=== PATIENT | female | born 1980 | race Caucasian/White ===

== ENCOUNTER → 2018-06-11 13:47 | Outpatient (CLI) | payer OTHER, SELFPAY ==
[2018-06-11 09:29] VITALS: BMI 28.7
--- OUTSIDE RECORDS SUMMARY | 2018-07-28 18:43 | XMS RPT_ITS ---
:1980 Author Organization OHIP Care Team Providers Name Role Phone Karina Carrillo Attending Unavailable Oleghe, Efewongbe Referring Unavailable Yale, Karina Attending Unavailable Yale, Karina Referring Unavailable Oleghe, Efewongbe Primary Care Unavailable Oleghe, Efewongbe Attending Unavailable Oleghe, Efewongbe Referring Unavailable Primay Care Physicia, No Primary Care Unavailable Yale, Karina Attending Unavailable Lorena, Karina Attending Unavailable Oleghe, Efewongbe Referring Unavailable Lorena, Karina Attending Unavailable Lorena, Karina Referring Unavailable Oleghe, Efewongbe Primary Care Unavailable Jules Gale OUTSOLE PARAFFINER-C Attending Unavailable Oleghe, Efewongbe Referring Unavailable Primay Care Physicia, No Primary Care Unavailable Jules Gale OUTSOLE PARAFFINER-C Attending Unavailable Oleghe, Efewongbe Referring Unavailable PROBLEMS PROBLEMS DATE TYPE CONDITION / CODE ATTENDING STATUS SOURCE 07/09/2018 Unknown N89.8 - Other YaleKarina otero Active [place] specified [facility] disorders of vagina / Repository N89.8(ICD-10) 07/09/2018 Unknown Z01.411 - Encounter Karina Carrillo Active [place] for gynecological Community examination (general) Hospital (routine) with Repository abnormal findings / Z01.411(ICD-10) 06/11/2018 Unknown N76.0 - Acute YaleKarina Active [place] vaginitis / Community N76.0(ICD-10) Hospital Repository 06/11/2018 Unknown B37.3 - Candidiasis Lorena, Karina Active [place] of vulva and vagina / Community B37.3(ICD-10) Hospital Repository 04/05/2018 Unknown Z23 - Encounter for Jules Gale Active [place] immunization / OUTSOLE PARAFFINER-C Community Z23(ICD-10) Hospital Repository PROCEDURES PROCEDURES No Procedure Records FoundRESULTS RESULTS Observed: 07/09/2018 Status: F Source: [place] CULTURE, GENITAL 2:06 PM [facility] COMPREHENSIVE REPOSITORY Reason for Exam: vaginal itching Comments: sensitivities for any growth Gram Stain Score = 4 Interpretation: 0-3 Normal, 4-6 Intermediate, 7-10 Positive BV Gram Stain 1+ Epithelial cells 1+ Gram positive rods 2+ Gram positive cocci in chains Rare Gram variable azra No Gram negative diplococci Gent Cult Comp No Gardnerella, Neisseria or beta-hemolytic Streptococcus isolated. ORGANISM 1: Streptococcus agalactiae (B) Amount Growth 3+ ORGANISM 2: Presumptive C albicans Amount Growth Rare Streptococcus agalactiae (B): REACTION Ampicillin $ <=0.25 S Clindamycin $$ <=0.25 S Inducable Clindamycin Resistan - Linezolid $$$$ <=2 S Vancomycin $ 0.5 S (NF) indicates non-formulary drug at [facility]. Approval by Infectious Disease Specialist required before non-formulary drugs may be ordered and/or dispensed. * CLSI guidelines does not recommend testing of cephalosporins. This interpretation is deduced from Beta-lactam/penicillin results. Performed By: #### M100.1600 #### [facility] [address] [place], [address] [employer] OFFICE VISIT Observed: 07/09/2018 Status: F Source: [place] REPORT 9:55 AM [facility] REPOSITORY [facility] [address] [place] [address] OFFICE VISIT Date of Service: 07/09/18 MR#: [id number] Acct: [id number] Name: BENY REICH Rep #: [id number] : 1980 Provider: ALEISHA Carrillo Age/Sex: 38/F Location: [facility] Status: Signed Intake Vital Signs07/09/18 Body Mass Index (BMI) 28.7 07/09/18 Height 5 ft 6 in 07/09/18 Weight: 192 lb 07/09/18 Body Mass Index (BMI) 30.9 07/09/18 Blood Pressure 108/74 Intake Visit Reasons: ANNUAL Order Detailer Required: No Is patient in pain?: No Allergies No Known Allergies Allergy (Verified 07/09/18 09:26) Medications multivitamin,zg-ekre-oykozfny tablet 1 tab PO DAILY 06/11/18 [History Confirmed 07/09/18] fluconazole 150 mg tablet 150 mg PO .COMPLEX #5 tab 07/09/18 [Rx Confirmed 07/09/18] triamcinolone acetonide 0.025 % topical cream 1 applic TOPICAL BID PRN g 07/09/18 [History] Is last menstrual period known: Yes Last Menstral Period: 06/12/18 Post menopausal: No Patient : No : No PFSH Surgical History History of 3 sections (Acute) History of tubal ligation (Acute) Family History Grandfather Colon cancer Grandmother CVA (cerebral vascular accident) Hypertension Sister Cancer basal cell skin Depression Social History Smoking Status: Never smoker alcohol intake: current alcohol intake frequency: a few times a month substance use type: does not use what type of physical activity do you participate in: walking, weight training frequency: 3-4 times per week seatbelt use: always do you feel safe at home: Yes additional social history: - [place]- Insurance 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 DatName GA/WeeksOutcome Route [facility] Nadir Peguero [facility] LocaProviderFOB e ht en th ia tn Unknown 2009 Log an Unknown Leigha Unknown 2015 [facility] HPI ANNUAL: Details: BENY REICH is a 38 year old who presents for annual exam. She is having vaginal itching X 1-2 weeks. Was treated for yeast in Jun 2018. States has been dealing with whole body itching since December. Has seen PCP twice and derm 3 times and biopsy confirms skin condition similar to psoriasis. Last PAP: 2016 History of abnormal PAP: no Contraception BTO Was on OCP for menstrual control but stopped 3 months ago per derm to see if itching improved. Female Reproductive History Last Menstral Period: 06/12/18 ROS Const Constitutional: Denies fatigue, weight gain or weight loss Cardio Card: Denies chest pain Resp Resp: Denies cough or shortness of breath with activity GI GI: Denies abdominal pain, constipation, change in stools, vomiting or bloating : Reports as per HPI and vaginal itching; denies urinary frequency, pelvic pain, urinary urgency, vaginal discharge, urinary incontinence or difficulty urinating Skin Skin/Breast: Reports as per HPI Exam Const General: cooperative, healthy appearing, no acute distress, well developed Orientation: alert, oriented to person, oriented to place HENSC Head: normal to inspection Neck Neck: normal visual inspection Thyroid: thyroid normal Lymphatic: no lymphadenopathy noted Chest Breast inspection: normal inspection of the breasts, normal inspection of the axillae Breast palpation: normal palpation of the breasts, normal palpation of the axillae, no axillary lymphadenopathy Resp Effort AND Inspection: normal respiratory effort GI Palpation: soft, nontender, no masses Rectal Exam: deferred External Female Exam: normal external appearance, normal appearance of the urethra Urethra: normal appearance of the urethra, normal palpation Speculum Exam - Vagina: abnormal vaginal discharge white, vaginal erythema (slight mottled appearance) Speculum Exam - Cervix: normal appearance of the cervix Bimanual Exam- Vagina AND Uterus: normal bimanual exam, uterine size normal, uterine shape normal, uterus non-tender Bimanual Exam- Adnexa, other: normal adnexae, no adnexal masses, adnexae non-tender, pelvic support normal Pelvic Support: normal Neuro General: alert, oriented x3 Psych Affect: normal affect Assessment AND Plan Problems 1. Encounter for gynecological examination with abnormal finding Z01.411 2. Vagina itching N89.8 Plan Completed breast and pelvic exam Reviewed diet and exercise Pap 2016 Fluconazole every other day X 5 doses. Comp vag culture with sensitivities-call results. May consider clobetesol if neg culture Contraception BTO RTO 1 year, prn with problems Karina Carrillo BUSINESS MANAGEMENT SPECIALIST Orders Orders: Medications New: Coding Level of Care Code Off vis,est,prev 18-39yrs Diagnoses Encounter for gynecological examination with abnormal finding Z01.411 Gynecological examination findings: abnormal findings PRESENT Vagina itching N89.8 07/09/18 0955 <Electronically signed by Karina RIOSC> Date Karina Carrillo OUTSOLE PARAFFINER-C Cosigner Signature: Date (if applicable) CC: Observed: 06/11/2018 Status: F Source: [place] CULTURE, GENITAL 1:54 PM [facility] COMPREHENSIVE REPOSITORY Reason for Exam: vaginitis Gram Stain Score = 1 Interpretation: 0-3 Normal, 4-6 Intermediate, 7-10 Positive BV Gram Stain 3+ Gram positive rods Rare Epithelial cells Rare Gram negative rods Gent Cult Comp No Gardnerella, or Neisseria isolated. VINITA ALBICANS ANTIFUNGAL PANEL FLUCONAZOLE REVA 0.5 ug/mL SUSCEPTIBLE AMPHOTERICIN B REVA 0.5 ug/mL There are no CLSI standards for interpretation of this Drug/Organism combination. TESTING PERFORMED AT [facility]. ORIGINAL REPORT ON FILE IN LAB CONTAINS ADDITIONAL TEST SITE INFORMATION. ORGANISM 1: Streptococcus agalactiae (B) Amount Growth 1+ ORGANISM 2: [place] albicans Amount Growth Rare Streptococcus agalactiae (B): REACTION Ampicillin $ <=0.25 S Clindamycin $$ <=0.25 S Inducable Clindamycin Resistan - Linezolid $$$$ <=2 S Vancomycin $ 0.5 S (NF) indicates non-formulary drug at [facility]. Approval by Infectious Disease Specialist required before non-formulary drugs may be ordered and/or dispensed. * CLSI guidelines does not recommend testing of cephalosporins. This interpretation is deduced from Beta-lactam/penicillin results. Performed By: #### M100.1600 #### [facility] [address] [place], [place], [id number] MISCELLANEOUS LAB Collected: 06/11/2018 Status: F Source: [place] PROCEDURE 1:54 PM [facility] REPOSITORY Order Comment: ADD ON YEAST ID AND SENSITIVITY Test(s) Ordered: [id number] TYPE CODE TESTS RESULT OUT OF RANGE REFERENCE UNITS LAB L801.1541 Normal MISC LAB TEST Result Comment: SEE CULTURE [id number] FOR RESULTS Performed By: #### L801.1541 #### [facility] [address] [place], [place], [address] MISCELLANEOUS LAB Collected: 06/11/2018 Status: F Source: [place] PROCEDURE 1:00 PM [facility] REPOSITORY Order Comment: Comments: lc#[id number] lc#[id number] lc#[id number] Test(s) Ordered: lc#[id number] lc#[id number] lc#[id number] TYPE CODE TESTS RESULT OUT OF RANGE REFERENCE UNITS LAB L801.1541 Normal MISC LAB TEST Result Comment: Please see microbiology report for results. Performed By: #### L801.1541 #### [facility] [address] [place], [place], [address] [employer] OFFICE VISIT Observed: 06/11/2018 Status: F Source: [place] REPORT 9:57 AM [facility] REPOSITORY [facility] [address] [place] [address] OFFICE VISIT Date of Service: 06/11/18 MR#: [id number] Acct: [id number] Name: BENY REICH Rep #: [id number] : 1980 Provider: ALEISHA Carrillo Age/Sex: 37/F Location: [facility] Status: Signed Intake Vital Signs06/11/18 Body Mass Index (BMI) 28.7 Intake Visit Reasons: Vaginal itching x6 months Chief Complaint: vaginal itching Order Detailer Required: No Is patient in pain?: No Allergies No Known Allergies Allergy (Verified 06/11/18 09:26) Medications triamcinolone acetonide 0.025 % topical cream 1 applic TOPICAL BID #80 g 01/29/18 [Rx Confirmed 06/11/18] fluconazole 150 mg tablet 150 mg PO .COMPLEX #2 tab 06/11/18 [Rx Confirmed 06/11/18] multivitamin,bv-wzrc-feecgqnz tablet 1 tab PO DAILY 06/11/18 [History Confirmed 06/11/18] Is last menstrual period known: Yes Last Menstral Period: 05/14/18 Post menopausal: No Patient : No : No PFSH Surgical History History of 3 sections (Acute) History of tubal ligation (Acute) Family History Grandfather Colon cancer Grandmother CVA (cerebral vascular accident) Hypertension Sister Cancer basal cell skin Depression Social History Smoking Status: Never smoker alcohol intake: current alcohol intake frequency: a few times a month substance use type: does not use what type of physical activity do you participate in: walking, weight training frequency: 3-4 times per week HPI Vaginal itching x6 months: Details: BENY REICH is a 37 year old who presents for vaginal itching off and on X 6 months. OTC 3 day monistat helpful a few weeks ago but returned. and denies STD concerns. Has had BTO, was on OCP until last month to regulate menses. No menses yet. Female Reproductive History Last Menstral Period: 05/14/18 Pregancy History 3 Elective abortions Hx Para 3 Spontaneous abortions Past Pregnancies Del. DatName GA/WeeksOutcome Route [facility] Nadir Peguero LgAnestheILel LocaProviderFOB e ht en ia tn Unknown 2009 Log an Unknown Leigha Unknown 2015 Aut umn ROS Const Constitutional: Reports system reviewed and no additional complaints, except as docu GI GI: Denies abdominal pain or change in bowel habits : Reports as per HPI Exam Const General: cooperative, no acute distress Nutritional Appearance: well nourished Orientation: oriented x3 External Female Exam: erythema, normal appearance of the urethra Urethra: normal appearance of the urethra Speculum Exam - Vagina: abnormal vaginal discharge white, vaginal erythema Speculum Exam - Cervix: normal appearance of the cervix Bimanual Exam- Vagina AND Uterus: normal bimanual exam Bimanual Exam- Adnexa, other: normal adnexae Assessment AND Plan Problems 1. Monilial vaginitis B37.3 2. Vaginal discharge N89.8 Plan Rx fluconazole Review [employer] skin care NURA BV and comp vaginal culture-call only if not yeast Medications New: Coding Level of Care Code Off vis,est,level 3 Diagnoses Monilial vaginitis B37.3 Vaginal discharge N89.8 06/11/18 0957 <Electronically signed by Karina GRAFF> Date Karina GRAFF Cosigner Signature: Date (if applicable) CC: INTERNAL MEDICINE Observed: 04/05/2018 Status: F Source: [place] OFFICE VISIT 1:58 PM [facility] Internal Medicine [facility] [place] [address] [place] [address] OFFICE VISIT Date of Service: 04/05/18 MR#: [id number] Acct: [id number] Name: BENY REICH Rep #: [id number] : 1980 Provider: Jules Gale NP Age/Sex: 37/F Location: [facility] Status: Signed Intake Vital Signs04/05/18 Height 5 ft 6 in 04/05/18 Weight: 184 lb 04/05/18 Body Mass Index (BMI) 29.7 04/05/18 Blood Pressure 121/75 H Intake Visit Reasons: ongoing rash Chief Complaint: rash, itching Is patient in pain?: No Allergies No Known Allergies Allergy (Verified 04/05/18 10:27) Medications Levonorgestrel-Ethin Estradiol [Altavera-28 Tablet] 07/14/17 [History Confirmed 04/05/18] triamcinolone acetonide 0.025 % topical cream 1 applic TOPICAL BID #80 g 01/29/18 [Rx Confirmed 04/05/18] methylprednisolone 4 mg tablets in a dose pack See Rx Instructions PO PER PKG DIR #21 tab 04/05/18 [Rx Confirmed 04/05/18] PFSH Surgical History History of 3 sections (Acute) History of tubal ligation (Acute) Family History Grandfather Colon cancer Grandmother CVA (cerebral vascular accident) Hypertension Sister Cancer basal cell skin Depression Social History Smoking Status: Never smoker alcohol intake: current alcohol intake frequency: a few times a month substance use type: does not use what type of physical activity do you participate in: walking, weight training frequency: 3-4 times per week HPI HPI Chief Complaint: rash, itching Details: BENY REICH, is a 37 F who presents to the office today for complaints of ongoing rash. Patient has a past medical history of insomnia. Patient was seen in December with complaints of rash and treated for poison noman. The patient states the rash never fully went away, it did improve at the time. Over the past few months she complains of itchy red bumps mostly occurring on her arms and legs. She states that triamcinolone and yudy cream are minimally effective. She states that the itching is worse at night and in the morning. She denies any recent changes of soaps or chemicals. She also denies any issues from family members. She denies any other alleviating or agitating factors. The patient otherwise denies any fever, chills, nausea, vomiting, shortness of breath, chest pain or pressure, palpitations, orthopnea, lower extremity edema, syncope or presyncopal episodes. ROS Const Constitutional: No chills, fatigue, fever(s), frequent falls, malaise, weakness, sleep problems or change in appetite Eyes Eyes: No blurry vision, change in vision, double vision, discharge or visual disturbances ENT ENT: No abnormal hearing, ear pain, ear pressure, tinnitus or dizziness/vertigo Resp Respiratory: No cough, shortness of breath or wheezing Cardio Cardiology: No chest pain at rest, chest pain with exertion, shortness of breath, dyspnea on exertion, generalized swelling, irregular heart rhythm, lightheadedness, orthopnea, fast heart rate or palpitations Gastro GI: No abdominal pain, change in bowel habits, constipation, diarrhea, nausea/dyspepsia or vomiting Genitourinary-Female: No difficulty urinating, burning urination, painful urination, urinary incontinence, urinary frequency, urinary urgency, urinary hesitancy, urinary retention, Frequent nighttime urination/ nocturia, sexual problems, genital lesions, abnormal vaginal bleeding, pelvic pain, vaginal dryness, vaginal odor or Vaginal Itching Musc Musculoskeletal: No joint pain, back pain, joint swelling, limited range of motion, muscle weakness, numbness or tingling Skin Skin: Positive for itching and rash; no change in skin color or wounds Breast Breast: No breast lump or breast pain Neuro Neurology: No frequent falls, weakness, abnormal hearing, numbness, tingling, unsteady gait/balance, dizziness, loss of vision, memory loss or visual disturbances Psych Psychiatric: No memory loss, No anxiety, No change in appetite, No depression, No Thoughts of harming yourself/Others Endo Endocrine: No fatigue, heat intolerance, increased thirst/drinking, increased hunger or increased urination Aller/Imm Allergy/Immunologic: Positive for itchy eyes; no wheezing or seasonal allergy symptoms Uvaldo/Lymp Hematologic/Lymphatic: No easy bleeding, easy bruising or enlarged lymph nodes Exam Const General: cooperative, comfortable, no acute distress Nutritional Appearance: average body habitus, well nourished Orientation: alert, oriented x3 Limitations: mental status not altered Eyes General: appearance normal, both eyes and all related structures Resp Effort AND Inspection: normal respiratory effort, able to speak in complete sentences, normal respiratory pattern, symmetric chest movement, no audible wheezes, no cough Auscultation: Bilateral: Clear to Auscultation Cardio Palpation: normal PMI Rate: regular rate Heart Sounds: S1 normal, S2 normal, normal S1 and S2, no click, no gallops, no murmurs, no rubs Musc Musculoskeletal: No muscle weakness Skin General: elasticity normal, turgor normal Lesions: no lesions Rashes: rashes noted right upper arm: arrangement clustered clustered, surface, morphology, distribution, borders and other (Vesicular) bilateral posterior upper leg: arrangement clustered clustered and other (Vesicular) Neuro General: alert, awake, oriented x3, CN's II-XI intact bilaterally Speech: speech normal Gait: normal gait Motor: muscle tone normal throughout Extrem General: normal to inspection, normal gait, no edema, no pedal edema Psych Appearance: grossly normal Mental Status: mental status grossly normal Affect: normal affect Attitude: cooperative Thought Process: normal Office Meds Flucelvax Quad [id number] (PF) Performing Provider: DAJUAN Gilliam Administered by: Rose Rubio on 04/05/18 10:39 Dose Route Admin Location Lot Number Expiration Date [place] Gravel [employer]ener 0.5 mL IM Lt deltoid [id number] 12/29/18 82593-929-07 SEQIRUS Assessment AND Plan Problems 1. Contact dermatitis L25.9 2. Generalized pruritus L29.9 Plan The patient's symptoms are consistent with some sort of contact dermatitis, unsure of what the irritant may be at this time. Will start patient Medrol Dosepak. Instructed patient to eliminate any aggravating chemicals or irritants. Instructed patient to use lkd-ygoguqey-ttqvczixee products. Educated patient to take Benadryl at bedtime and Claritin during the day. If rashes continue or worsen patient to follow- up with golf caddy she is already established with and has an appointment with next week. Dmitry disclaimer Orders Orders: Medications New: Discontinued: Flucelvax Quad [id number] (PF) (flu vac qs 2017(4 yr up)CD(P0.5 mL IM ONCE 1 mL 0RF NS Z23 F)) Discontinued Reason: Office Medication has been Doc umented as given Plan Detail Additional Comments influenza vaccine given during today's office visit, patient verbalized understanding of the risks and benefits of the procedure. Patient monitored for 15 minutes after administration and tolerated the procedure well. No signs of reaction at this time. Patient education given.Patient educated on hzbk-cjf-vawwrec analgesics that may be appropriate for site discomfort. Follow Up As previously Coding Level of Care Code Off vis,est,level 3 Diagnoses Contact dermatitis L25.9 Generalized pruritus L29.9 04/05/18 1358 <Electronically signed by Jules GRAFF> Date Jules GRAFF Cosigner Signature: Date (if applicable) CC: INTERNAL MEDICINE Observed: 01/29/2018 Status: F Source: [place] OFFICE VISIT 11:12 AM [facility] Internal Medicine [address] [place] [address] [place] [address] OFFICE VISIT Date of Service: 01/29/18 MR#: [id number] Acct: [id number] Name: BENY REICH Rep #: [id number] : 1980 Provider: Jules Gale NP Age/Sex: 37/F Location: [facility] Status: Signed Intake Vital Signs01/29/18 Height 5 ft 6 in Intake Visit Reasons: rash, itch, for several days Chief Complaint: rash, itching Is patient in pain?: No Allergies No Known Allergies Allergy (Verified 07/14/17 07:18) Medications Levonorgestrel-Ethin Estradiol [Altavera-28 Tablet] 07/14/17 [History] triamcinolone acetonide 0.025 % topical cream 1 applic TOPICAL BID #80 g 01/29/18 [Rx Confirmed 01/29/18] PFSH Surgical History History of 3 sections (Acute) History of tubal ligation (Acute) Family History Grandfather Colon cancer Grandmother CVA (cerebral vascular accident) Hypertension Sister Cancer basal cell skin Depression Social History Smoking Status: Never smoker alcohol intake: current alcohol intake frequency: a few times a month substance use type: does not use what type of physical activity do you participate in: walking, weight training frequency: 3-4 times per week HPI HPI Chief Complaint: rash, itching Details: BENY REICH, is a 37 F who presents to the office today for an acute visit of rash and itching. She has a past medical history as listed above. The patient states that her symptoms initially began approximately a week ago where she was outside and doing gardening and she noted an area of poison noman on her right upper arm. She states that afterwards the rash spread is now on her left upper arm, her right flank and an area on her right abdomen and also a patch on her right posterior thigh. She describes the rash as itchy and at one point it was draining clear fluid as well. She states she has tried udth-muc-fdoxkbm treatments without much relief. She is concerned because she leaves on vacation and 5 days and once is taking care of. She denies any other acute complaints at this time. The patient otherwise denies any fever, chills, nausea, vomiting, shortness of breath, chest pain or pressure, palpitations, orthopnea, lower extremity edema, syncope or presyncopal episodes. ROS Const Constitutional: No weight change, body ache, chills, fatigue, sleep problems, fever(s), change in appetite, snoring, weakness, frequent falls, headache(s) or excessive sweating Eyes Eyes: No change in vision, eye pain, light sensitivity or blurry vision ENT ENT: No headache(s), abnormal hearing, ear pain, tinnitus, nasal congestion, sore throat or neck pain Resp Respiratory: No snoring, cough, shortness of breath or wheezing Cardio Cardiology: No excessive sweating, chest pain at rest, chest pain with exertion, shortness of breath, dyspnea on exertion, palpitations, orthopnea or lightheadedness Gastro GI: No abdominal pain, change in bowel habits, constipation, diarrhea, vomiting, nausea/dyspepsia or cramping Genitourinary-Female: No burning urination, painful urination, urinary incontinence, urinary frequency, abnormal vaginal bleeding, pelvic pain or other Musc Musculoskeletal: No neck pain, abnormal walking, joint pain, back pain, limited range of motion, numbness or tingling Skin Skin: Positive for itching and rash (on arms, underarms, legs, and abdomen); no redness, dry skin, lesions or wounds Neuro Neurology: No weakness, frequent falls, headache(s), abnormal hearing, abnormal walking, numbness, tingling, abnormal speech, dizziness or memory loss Psych Psychiatric: No change in appetite, No memory loss, No anxiety, No depression, No Thoughts of harming yourself/Others Endo Endocrine: No fatigue, excessive sweating, cold intolerance, increased thirst/drinking, heat intolerance, flushing or increased hunger Aller/Imm Allergy/Immunologic: Positive for itchy eyes; no wheezing, hives or seasonal allergy symptoms Uvaldo/Lymp Hematologic/Lymphatic: No easy bleeding, easy bruising or enlarged lymph nodes Exam Const General: cooperative, comfortable, no acute distress Nutritional Appearance: average body habitus, well nourished Orientation: alert, oriented x3 Limitations: mental status not altered Resp Effort AND Inspection: normal respiratory effort, able to speak in complete sentences, normal respiratory pattern, symmetric chest movement, no audible wheezes, no cough Auscultation: Bilateral: Clear to Auscultation Cardio Palpation: normal PMI Rate: regular rate Heart Sounds: S1 normal, S2 normal, normal S1 and S2, no click, no gallops, no murmurs, no rubs Skin Other: Vesicular cluster rash of poison noman dermatitis present right upper arm, left upper arm, right flank and lower abdomen, and right posterior thigh without signs of secondary skin infection at this time. Psych Appearance: grossly normal Mental Status: mental status grossly normal Affect: normal affect Attitude: cooperative Thought Process: normal Assessment AND Plan Problems 1. Poison noman dermatitis L23.7 Plan The patient's symptoms are consistent with that of poison noman dermatitis. Discussed the patient's options and given the diffuse nature recommended a steroid taper. However the patient already has problems with insomnia and wishes to hold off at this time and wishes to trial a prescription strength cream and that. Triamcinolone cream was called to her pharmacy and instructed on proper use. Did discuss with patient that if her symptoms do not improve in the next 2 days would consider highly recommending a systemic course of steroids. Also discussed continuing utilizing [id number] such as calamine lotion, antihistamines, and oatmeal baths. Discussed prevention and proper hygiene and avoidance in the future. Patient verbalized understanding. Discussed red flag symptoms that require urgent medical attention Patient information: Poison noman (The Basics) What is poison noman? Poison noman is a plant that can cause an itchy, red skin rash. When people have this rash, they often say, I got poison noman. The same substance that causes the poison noman rash is also found in poison oak, poison sumac, the ginkgo fruit, and yamil peels. How did I get poison noman? You might have gotten poison noman if you: -Touched a poison noman plant -Touched something that had the plant s oils on it (such as clothing, animal fur, or garden tools) -Were nearby when poison noman plants were being burned What does poison noman look like? Poison noman and poison oak have 3 leaves coming off a single stem. That's why there is a saying, leaves of 3, let them be. The leaves start out green, but they can turn red or brown. Even plants can cause the rash (figure 1). What will happen to my rash? Your rash should go away within 1 to 3 weeks, but it might form blisters before it does. Blisters are little bubbles of skin that are filled with fluid. They can show up in different places at different times. But that does not mean that the rash is spreading. Touching the blisters or the fluid inside the blisters will not spread the rash. What can I do to relieve the itching? You can: -Avoid scratching (that makes the itch worse) -Try putting a cold, wet cloth or paper towels on your rash -Use calamine lotion -If your blisters have started to pop, use skin products that have aluminum acetate in them (examples include Jose's solution and Domeboro) Should I see a doctor or nurse? You should see your doctor or nurse if: -Your rash is severe -Most of your body is affected -Your face or genitals are affected -You have a lot of swelling -You are not sure that you have poison noman -Your rash oozes pus or gives other signs of being infected -Your rash does not get better after 2 to 3 weeks If you have a very bad rash, your doctor or nurse can prescribe medicines called steroids. These medicines can reduce swelling and relieve itching. Steroids come in creams, ointments, and pills. Your doctor or nurse will decide what form you should use. Steroid creams and ointments are also sold without a prescription. But non-prescription versions are not usually strong enough to help with poison noman. Some creams or lotions can make your rash worse The products listed below sometimes cause a reaction that makes your skin more itchy or irritated: -Antihistamine creams or lotions -Numbing products that have benzocaine -Antibiotic ointments that have neomycin or bacitracin How do I keep from getting poison noman again? You can: -Stay away from poison noman, even if the plant is -Wear long sleeves and pants when working near poison noman, and wash your clothes right away when you are done -Wear thick vinyl gloves when doing yard work (latex and rubber gloves do not always protect against poison noman) -Gently wash with soap and water if you do touch poison noman (do not scrub) -Avoid burning poison noman plants cited from UpToDate Medications New: Plan Detail Additional Comments This note was generated with [employer] dictation software. It may contain incorrect words, spelling, and punctuation that were not noted in checking the note before signing. Follow Up As previously scheduled or sooner Coding Level of Care Code Off vis,est,level 3 Diagnoses Poison noman dermatitis L23.7 01/29/18 1112 <Electronically signed by Jules GRAFF> Date Jules GRAFF Cosigner Signature: Date (if applicable) CC: INTERNAL MEDICINE Observed: 08/09/2017 Status: F Source: [place] OFFICE VISIT 7:05 PM [facility] Internal Medicine [address] [address] [place] [address] OFFICE VISIT Date of Service: 08/09/17 MR#: [id number] Acct: [id number] Name: BENY REICH Rep #: [id number] : 1980 Provider: Fernanda Wilson MD Age/Sex: 37/F Location: [facility] Status: Signed Intake Vital Signs08/09/17 Height 5 ft 6 in Intake Visit Reasons: EST PCP Chief Complaint: establish care Is patient in pain?: No Allergies No Known Allergies Allergy (Verified 07/14/17 07:18) Medications Levonorgestrel-Ethin Estradiol [Altavera-28 Tablet] 07/14/17 [History] Is last menstrual period known: Yes PFSH Surgical History History of 3 sections (Acute) History of tubal ligation (Acute) Family History Grandfather Colon cancer Grandmother CVA (cerebral vascular accident) Hypertension Sister Cancer basal cell skin Depression Social History Smoking Status: Never smoker alcohol intake: current alcohol intake frequency: a few times a month substance use type: does not use what type of physical activity do you participate in: walking, weight training frequency: 3-4 times per week HPI HPI Chief Complaint: establish care Details: BENY REICH, is a 37yo F who presents to the office today to establish care. She has no significant past medical history. She however is concerned about her poor sleeping habits. She states that she goes to bed about 10pm however, has interrupted sleep. This she states has been ongoing for several years. She has a 1-year-old daughter but per patient, her daughter sleeps through the night. She sleeps with a television on in her room and also has other electronic devices on. She denies tobacco or alcohol abuse. She also denies other substance abuse. She is not a heavy caffeine drinker. ROS Const Constitutional: Positive for sleep problems (wakes multiple times at night); no weight change, body ache, chills, fatigue, fever(s), change in appetite, snoring, weakness, frequent falls, headache(s) or excessive sweating Eyes Eyes: No change in vision, eye pain, light sensitivity or blurry vision ENT ENT: No headache(s), abnormal hearing, ear pain, tinnitus, nasal congestion, sore throat or neck pain Resp Respiratory: No snoring, cough, shortness of breath or wheezing Cardio Cardiology: No excessive sweating, chest pain at rest, chest pain with exertion, shortness of breath, dyspnea on exertion, palpitations, orthopnea or lightheadedness Gastro GI: No abdominal pain, change in bowel habits, constipation, diarrhea, vomiting, nausea/dyspepsia or cramping Musc Musculoskeletal: No neck pain, abnormal walking, joint pain, back pain, limited range of motion, numbness or tingling Skin Skin: No redness, dry skin, itching, lesions, wounds or rash Neuro Neurology: No weakness, frequent falls, headache(s), abnormal hearing, abnormal walking, numbness, tingling, abnormal speech, dizziness or memory loss Psych Psychiatric: No change in appetite, No memory loss, No anxiety, No depression, No Thoughts of harming yourself/Others Endo Endocrine: No fatigue, excessive sweating, cold intolerance, increased thirst/drinking, heat intolerance, flushing or increased hunger Aller/Imm Allergy/Immunologic: No wheezing, itchy eyes, hives or seasonal allergy symptoms Uvaldo/Lymp Hematologic/Lymphatic: No easy bleeding, easy bruising or enlarged lymph nodes Exam Const General: cooperative, no acute distress, well developed Orientation: alert, awake, oriented x3 [facility] Head: normal to inspection, normocephalic, atraumatic Ears: hearing grossly normal bilaterally, TM's normal bilaterally Eyes General: appearance normal, both eyes and all related structures Eyelids: eyelids normal Conjunctivae: conjunctivae normal Pupils: PERRL Neck Neck: normal visual inspection, full ROM, no lymphadenopathy Neck mass: No Thyroid: thyroid normal Resp Effort AND Inspection: normal respiratory effort, able to speak in complete sentences Auscultation: Bilateral: Clear to Auscultation Cardio Rate: regular rate Rhythm: regular rhythm Heart Sounds: S1 normal, S2 normal GI Palpation: soft, no hepatosplenomegaly Neuro General: alert, awake, oriented x3, CN's II-XI intact bilaterally, moves all extremities Extrem General: no clubbing, cyanosis or edema Psych Appearance: grossly normal Affect: normal affect Speech and Movement: speech and movement normal Thought Process: normal Assessment AND Plan 1. Insomnia G47.00 Plan Chronic and now bothersome. No difficulties carrying out her activities of daily living. No prior history of sleep apnea. Sleep hygiene discussed. Follow-up in 6 weeks. 2. Overweight E66.3 Plan Discussed lifestyle modifications. Follow-up at next visit. This note was generated with [employer] software. It may contain incorrect words, spelling, and punctuation that were not noted in checking the note before signing. Plan Detail Follow Up 6 Weeks Coding Level of Care Code Off vis,new,level 3 Diagnoses Insomnia G47.00 Overweight E66.3 08/09/17 1905 <Electronically signed by Fernanda Wilson MD> Date Fernanda Wilson MD Cosigner Signature: Date (if applicable) CC: ALLERGIES ALLERGIES DATE TYPE / CODE NAME / CODE REACTION SEVERITY SOURCE 07/09/2018 Drug No Known Unknown [facility] Allergy/4160 Allergies/F00 [facility] [address](SNOMED [id number](RXNOR Repository CT) M) ENCOUNTERS ENCOUNTERS ADMIT/DISCHARGE ACCOUNT ADMITTING ENCOUNTER LOCATION SOURCE NUMBER CLASS 07/09/2018 [id number] Ambulatory [place] [facility] ing:[facility] Repository 07/09/2018/ [id number] Ambulatory BMSBuilding:B [place] 9 2 [place] Repository 06/12/2018 [id number] Ambulatory BMSBuilding:B [place] 9 [facility] Repository 06/11/2018 [id number] Ambulatory [place] [facility] ing:[facility] Repository 06/11/2018/ [id number] Ambulatory BMSBuilding:B [place] 4 [place] Repository 04/05/2018/ [id number] Ambulatory BMSBuilding:B [place] 1 [place] Repository 01/29/2018/ [id number] Ambulatory BMSBuilding:B [place] 1 [place].[facility] Repository 08/09/2017/ [id number] Ambulatory BMSBuilding:B [place] 9 [facility] Repository PAYERS PAYERS ENCOUNTER GUARANTOR PAYER SUBSCRIBER SOURCE 07/09/2018 BENY Mcgrath Primary TAYLER Dejesus [id number] N Insurance:[facility] [place] Number: [place], [place] [id number] Repository [address]Dhm: (330) Date:9424-55-51[phone] () [address], [place] [address]AB: 07/09/2018 Secondary NOT GIVENUNK [place] Insurance:SELF PAY [facility] Number: Effective Repository Date:2018-07-09 07/09/2018 BENY Mcgrath Primary TAYLER Dejesus [id number] N [facility] [place] Number: [place], [place] [id number] Repository [address]Wpl: (330) Date:4185-15-98[phone] () [id number], [place] [address]FI: 07/09/2018 Secondary NOT GIVENUNK [place] Insurance:SELF PAY [facility] Number: Effective Repository Date:2018-07-09 06/12/2018 BENY Mcgrath Primary TAYLER Dejesus [id number] N Insurance:[facility] [place] Number: [place], [place] [id number] Repository [address]Kxc: (330) Date:5091-01-73DQ [phone] () [address], [place] [address]WQ: 06/12/2018 Secondary NOT GIVENUNK [place] Insurance:SELF PAY [facility] Number: Effective Repository Date:2018-06-12 06/11/2018 BENY Mcgrath Primary TAYLER Dejesus [id number] N [facility] [place] Number: [place], [place] [id number] Repository [address]Lmc: (330) Date:7587-56-44HB [phone] (HP) 554983XDPLACIDO FLORES [address]DG: 06/11/2018 Secondary NOT GIVENUNK [place] Insurance:SELF PAY [facility] Number: Effective Repository Date:2018-06-11 06/11/2018 BENY Dejesus [id number] N Insurance:[employer] [facility] [place] Number: [place], [place] [id number] Repository [address]Wzw: (330) Date:4447-81-85YH [phone] (HP) 641618QBPLACIDO FLORES [address]WX: 06/11/2018 Secondary NOT GIVENUNK [place] Insurance:SELF PAY [facility] Number: Effective Repository Date:2018-06-11 04/05/2018 BENYCUAUHTEMOC Dejesus [id number] N Insurance:[employer] [facility] [place] Number: [place], [place] [id number] Repository [address]Vdd: (330) Date:5192-10-80VH [phone] () 539395YLPLACIDO FLORES [address]BM: 04/05/2018 Secondary NOT GIVENUNK [place] Insurance:SELF PAY [facility] Effective Repository Date:2018-04-05 01/29/2018 BENYCUAUHTEMOC Dejesus [id number] N Insurance:[employer] [place] Number: [place], [place] [id number] Repository [address]Onk: (330) Date:3578-09-06[phone] (HP) [id number] FLORES [address]LH: 01/29/2018 Secondary NOT GIVENUNK [place] Insurance:SELF PAY [facility] Number: Effective Repository Date:2018-01-29 08/09/2017 BENY [id number] N Insurance:[employer] [place] Number: [place], [place] [id number] Repository [address]Xnn: 330) Date:4677-36-83HO [phone] () [id number] PLACIDO HEATON [address]GP: 08/09/2017 Secondary NOT GIVENUNK [place] Insurance:SELF PAY [facility]: Effective Repository Date:2017-07-13
== END ==
PROVIDERS: Family Provider Internal Medicine; PCP Internal Medicine; Referring Provider Nurse Practitioner Women's Health; Visit Provider Nurse Practitioner Women's Health
DX: N76.0 Acute vaginitis (principal)
CPT/HCPCS: 87070; 87077; 87106; 87186; 87205

== ENCOUNTER → 2018-07-09 13:20 | Outpatient (CLI) | payer OTHER, SELFPAY ==
[2018-07-09 09:34] VITALS: BMI 28.7
== END ==
PROVIDERS: Family Provider Internal Medicine; PCP Internal Medicine; Referring Provider Nurse Practitioner Women's Health; Visit Provider Nurse Practitioner Women's Health
DX: N89.8 Other specified noninflammatory disorders of vagina (principal)
CPT/HCPCS: 87070; 87077; 87186; 87205

== ENCOUNTER → 2019-04-22 10:35 | Outpatient (CLI) | payer OTHER, SELFPAY ==
[2019-04-22 10:05] VITALS: BMI 29.2
[2019-04-22 12:50] LABS: Absolute Lymphocyte Count 1.92 X10^3/uL (0.83-4.51); Basophil# 0.04 X10^3/uL; Basophil% 0.7 % (0-1); Eosinophil# 0.49 X10^3/uL; Eosinophils% 8.1 % (0-5); Hematocrit 42.9 % (37-47); Hemoglobin 14.3 g/dL (12.0-15.0); Lymphocyte # 1.92 X10^3/ul (4.0); Lymphocyte % 31.6 % (19-41); Mean Corp Hgb Conc 33.3 g/dL (32-36); Mean Corpuscular Hgb 29.9 pg (27.0-32.0); Mean Corpuscular Volume 89.6 fL (81-99); Monocyte% 9.9 % (0-10); NRBC Flagged by Analyzer 0 % (0-5); Neutrophil # 3.02 X10^3/uL (2.7-7.7); Neutrophil % 49.5 % (47-70); Platelet Count 300 K/mm3 (150-450); RBC Distribution Width CV 11.9 % (11.6-14.6); RBC Distribution Width SD 38.9 fl (35.1-43.9); Red Blood Count 4.79 M/mm3 (4.2-5.4); White Blood Count 6.1 K/mm3 (4.4-11.0)
[2019-04-22 13:39] LABS: ALB/GLOB Ratio 1.1 RATIO (0.9-2.4); AST(SGOT) 15 U/L (15-37); Alanine Aminotransfer ALT/SGPT 24 U/L (13-56); Albumin, Serum 3.9 g/dL (3.2-5.0); Alkaline Phosphatase 68 U/L (45-117); Anion Gap 7 (5-15); BUN 13 mg/dL (7-18); BUN/Creat Ratio 15.2 RATIO (10-20); Calcium,Total 9.2 mg/dL (8.5-10.1); Chloride 105 mmol/L (98-107); Cholesterol 165 mg/dL (200); Creatinine, Serum 0.86 mg/dL (0.55-1.02); EST Glomerular Filtration Rate 79 mL/min (>60); Est Glom Filt Rate - Afr Amer 96 mL/min (>60); Globulin 3.7 g/dL (2.2-4.2); Glucose 82 mg/dL (74-106); High Density Lipoprotein 45 mg/dL; Potassium 3.8 mmol/L (3.5-5.1); Protein, Total 7.6 g/dL (6.4-8.2); Sodium Level 138 mmol/L (136-145); Triglycerides 174 mg/dL; Very Low Density Lipoprotein 35 mg/dL (5-40)
== END ==
PROVIDERS: Family Provider Internal Medicine; PCP Internal Medicine; Visit Provider Internal Medicine
DX: Z00.00 Encounter for general adult medical examination without abnormal findings (principal)
CPT/HCPCS: 36415; 80053; 80061; 85025

== ENCOUNTER → 2020-01-01 | Outpatient (CLI) | payer BC, SELFPAY ==
[2020-01-01 08:56] VITALS: BMI 29.2
== END | disposition home or self-care (01) ==
LOC: LABSPEC 16:41
PROVIDERS: PCP Internal Medicine; Referring Provider Nurse Practitioner Women's Health; Visit Provider Nurse Practitioner Women's Health
DX: N89.8 Other specified noninflammatory disorders of vagina (principal)
CPT/HCPCS: 87070; 87077; 87205

== ENCOUNTER → 2020-02-02 | Outpatient (CLI) | payer BC, SELFPAY ==
[2020-02-02 09:19] VITALS: BMI 29.2
== END | disposition home or self-care (01) ==
LOC: LABSPEC 14:52
PROVIDERS: PCP Internal Medicine; Referring Provider Nurse Practitioner Women's Health; Visit Provider Nurse Practitioner Women's Health
DX: N39.0 Urinary tract infection, site not specified (principal)
CPT/HCPCS: 87086; 87088

== ENCOUNTER → 2020-07-15 | Outpatient (CLI) | payer BC, SELFPAY ==
[2020-07-15 10:10] VITALS: BMI 31.4
[2020-07-20 09:49] LABS: HPV APTIMA, High Risk Negative (Negative)
== END | disposition home or self-care (01) ==
LOC: LABSPEC 12:38
PROVIDERS: PCP Internal Medicine; Referring Provider Nurse Practitioner Women's Health; Visit Provider Nurse Practitioner Women's Health
DX: Z12.4 Encounter for screening for malignant neoplasm of cervix (principal)
CPT/HCPCS: 87624; 88175; G0145

== ENCOUNTER → 2020-08-23 | Outpatient (CLI) | payer BC, SELFPAY ==
[2020-08-23 13:15] VITALS: BMI 31.8
== END | disposition home or self-care (01) ==
LOC: LABSPEC 16:42
PROVIDERS: PCP Internal Medicine; Referring Provider Obstetrics & Gynecology; Visit Provider Obstetrics & Gynecology
DX: R30.9 Painful micturition, unspecified (principal)
CPT/HCPCS: 87086; 87088; 87186

== ENCOUNTER → 2022-02-27 | Outpatient (CLI) | payer BC, SELFPAY ==
--- NOTE | 2022-02-27 09:10 | BI_ITS ---
MAMMOGRAPHY - BILATERAL SCREENING REASON FOR EXAM: Female, 41 years old. Routine annual screening examination. PERTINENT HISTORY: Non-contributory. TECHNIQUE: Digital bilateral breast blank (3D mammographic acquisition) in the CC and MLO projections. 2-D mediolateral oblique (MLO) and craniocaudad (CC) views of both breasts were obtained. CAD: Full Field Digital Mammography with Computer Added Detection was performed. COMPARISON: None. Baseline examination. FINDINGS: Breast Composition: The breasts are heterogeneously dense, which may obscure small masses. There are no dominant masses or suspicious calcifications. Benign-appearing bilateral axillary lymph nodes. No other significant abnormalities are identified. BI/SCRN MAMM (CAD)W/BLANK BILAT IMPRESSION: Negative screening mammogram. Yearly followup mammogram recommended. (A) ASSESSMENT CATEGORY: BIRADS Category 2: Benign. A letter regarding these results will be sent to the patient by the facility within 30 days. Approximately 10% of breast cancers are not detected by mammography. A normal mammogram should not delay biopsy of a clinically suspicious abnormality. [id number] Electronically Signed: Anatoly Bowles MD at 10:22 EDT ,
== END | disposition home or self-care (01) ==
LOC: OPBI 09:09
PROVIDERS: PCP Internal Medicine; Visit Provider Obstetrics & Gynecology
DX: Z12.31 Encounter for screening mammogram for malignant neoplasm of breast (principal)
CPT/HCPCS: 77063; 77067

== ENCOUNTER → 2022-10-09 | Outpatient (CLI) | payer OTHER, SELFPAY ==
[2022-10-09 12:04] LABS: Absolute Lymphocyte Count 2.66 X10^3/uL (0.83-4.51); Absolute Neutrophil Count 4.4 X10^3/uL (2.0-7.7); Basophil# 0.06 X10^3/uL; Basophil% 0.8 % (0-1); Eosinophil# 0.34 X10^3/uL; Eosinophils% 4.3 % (0-5); Hematocrit 41.2 % (37-47); Hemoglobin 14.1 g/dL (12.0-15.0); Lymphocyte # 2.66 X10^3/ul (0.83-4.51); Lymphocyte % 33.3 % (19-41); Mean Corp Hgb Conc 34.2 g/dL (32-36); Mean Corpuscular Hgb 30.5 pg (27.0-32.0); Mean Platelet Vol. 9.6 fl (6.2-12.0); Monocyte# 0.45 X10^3/uL; Monocyte% 5.6 % (0-10); NRBC Flagged by Analyzer 0 % (0-5); Neutrophil # 4.44 X10^3/uL (2.7-7.7); Neutrophil % 55.6 % (47-70); Platelet Count 323 K/mm3 (150-450); RBC Distribution Width SD 38.8 fl (35.1-43.9); Red Blood Count 4.63 M/mm3 (4.2-5.4)
[2022-10-09 12:30] LABS: Albumin, Serum 3.7 g/dL (3.2-5.0); BUN 16 mg/dL (7-18); BUN/Creat Ratio 25.9 RATIO (10-20); Creatinine, Serum 0.62 mg/dL (0.55-1.02); EST Glomerular Filtration Rate 114 mL/min (>60); Est Glom Filt Rate - Afr Amer 138 mL/min (>60); Globulin 3.7 g/dL (2.2-4.2); Glucose 84 mg/dL (74-106); Protein, Total 7.4 g/dL (6.4-8.2)
[2022-10-09 12:31] LABS: AST(SGOT) 16 U/L (15-37); Alanine Aminotransfer ALT/SGPT 28 U/L (13-56); Alkaline Phosphatase 60 U/L (45-117); Anion Gap 4 (5-15); Calcium,Total 8.9 mg/dL (8.5-10.1); Chloride 106 mmol/L (98-107); Cholesterol 178 mg/dL (200); High Density Lipoprotein 45 mg/dL; Potassium 3.6 mmol/L (3.5-5.1); Sodium Level 137 mmol/L (136-145); Triglycerides 295 mg/dL; Very Low Density Lipoprotein 59 mg/dL (5-40)
== END | disposition home or self-care (01) ==
LOC: BIMLAB 10:18
PROVIDERS: PCP Internal Medicine; Referring Provider Internal Medicine; Visit Provider Internal Medicine
DX: Z00.00 Encounter for general adult medical examination without abnormal findings (principal)
CPT/HCPCS: 36415; 80053; 80061; 85025

== ENCOUNTER 2022-11-06 11:00 | Outpatient (RCR) | payer OTHER, SELFPAY ==
--- NOTE | 2022-10-16 13:29 | HP.PTEVAL_ITS ---
Patient's Visit Information BENY REICH is a 42 year old F referred to Physical Therapy by Dr. Fernanda Wilson MD with a diagnosis of LEFT SHOUDER PAIN. Date of Evaluation: 10/16/22 Physical Therapist: Param De La Cruz, PT, Cert MDT, OCS - Visit Plan Frequency: 1-2x /Week Duration: 4 Weeks Plan: PT INTERVENTIONS POSTURAL EX'S ,RTC /SCAPULAR STRENTHENING AND MODALTIES PRN - Subjective This 42 y/o female presents to physical therapy to left shoulder. Patient injury to left shoulder Nov slipped in bathroom with left shoulder . Patient had immediate pain. Patient was managing pain but when get back from Vacation with a lot. Seen DR [facility] did x-rays -. Then seen DR recommended PT . Pain located on AC joint. Aggravating factors reaching OH and lifting . Alleviating factors rest, Patient pain is affected on left side. Demoes paresthesia/tingling. Patient goals to have no pain. SOCIAL: [employer]. VOACTION: - Pain Left Shoulder Pain Intensity (Out of 10): 3 Pain Intensity Range: 10 - Objective POSTURE: mild forward posture. PALAPTION: unremarkable. NEURO: denies paresthesia/tingle. AROM: shoulder flexion 150 degrees ,abduction 150 degrees ,ER 90 ,IR L4. MMT: grossly RTC 4-/5 , deltoid 4-/5 ache ,middle trap 3+/5 - Balance/Special Test Scores Quick DASH Score: 27.2725 - Goals Goal 1:: Patient to be I with HEP Goal Time Frame: 4-6 Weeks Goal 2:: Patient to demonstrate to 50% improvement with decrease pain with improved function Goal Time Frame: 4-6 Weeks Goal 3:: Patient to increase strength left shoulder RTC /deltoid 4/5 to improve function Goal Time Frame: 4-6 Weeks Goal 4:: Patient improve quick dash by 5 points to improve QOL and function. Goal Time Frame: 4-6 Weeks - Rehabilitation Potential Physical Therapy Diagnosis: This patient has strain left shoulder with decrease strength weakness which impairs ADLS and housework tasks thus benefit from skilled PT Rehabilitation Potential: Good - Anticipated Interventions Patient/Client Instruction: Educate patient on: Condition, Plan of Care For the Purpose of:: To decrease pain, To increase ROM, To improve muscle performance and motor function, To improve ability to perform ADL's, To increase tolerance to activity/condition/position, To improve ability of physical actions for home/community/work/leisure, To improve health of tissue, To decrease soft tissue restriction, To increase flexibility/ROM, To prevent re-injury Therapeutic Exercise to Include: Strength training, Postural training, Flexibilty training, Active ROM For the Purpose of:: To decrease pain, To increase ROM, To improve muscle performance and motor function, To improve ability of physical actions for home/community/work/leisure, To improve health of tissue, To decrease soft tissue restriction, To increase flexibility/ROM TENS: Yes IF ES: Yes Cryotherapy (ice pack, ice massage): Yes Thermo therapy (hot pack): Yes Ultrasound (thermal/non thermal): Yes For the Purpose of:: To decrease pain, To improve nutrient delivery to tissue, To increase oxygenation perfusion, To improve health of tissue, To decrease soft tissue restriction Thank you for the opportunity to evaluate your patient. For Medicare and Medicare HMO plans, please review the plan of care and approve it. It will need to be FAXED BACK to us at [phone] for Medicare purposes. For Medicare only, by signing this I certify the plan of care. Please let me know if there are questions or concerns regarding this plan of care. Physician Signature: Date:
--- NOTE | 2023-02-28 12:28 | HP.PT.NRP ---
Patient Information Patient Information: BENY REICH was seen in my office for initial evaluation on 10/16/22. The following Plan of Care was established for this patient: POC Established Initial Frequency: 1-2x /Week Initial Duration: 4 Weeks Anticipated Interventions Patient/Client Instruction: Educate patient on: Condition and Plan of Care For the Purpose of:: To decrease pain, To increase ROM, To improve muscle performance and motor function, To improve ability to perform ADL's, To increase tolerance to activity/condition/position, To improve ability of physical actions for home/community/work/leisure, To improve health of tissue, To decrease soft tissue restriction, To increase flexibility/ROM and To prevent re-injury Therapeutic Exercise to Include: Strength training, Postural training, Flexibilty training and Active ROM For the Purpose of:: To decrease pain, To increase ROM, To improve muscle performance and motor function, To improve ability of physical actions for home/community/work/leisure, To improve health of tissue, To decrease soft tissue restriction and To increase flexibility/ROM TENS: Yes IF ES: Yes Cryotherapy (ice pack, ice massage): Yes Thermo therapy (hot pack): Yes Ultrasound (thermal/non thermal): Yes For the Purpose of:: To decrease pain, To improve nutrient delivery to tissue, To increase oxygenation perfusion, To improve health of tissue and To decrease soft tissue restriction Last Seen Last Seen: This patient was last seen in our office . Pertinent comments regarding their Physical therapy will appear below: Patient was seen for PT for shoulder pain and HEP At this point I will be discontinuing this patient from physical therapy. I would be happy to see this patient again in the future if found appropriate by the physician. Thank you! Param De La Cruz, PT, Cert MDT, OCS Balance/Gait/Functional tests Balance/Special Test Scores Quick DASH Score: 27.2994
== END 2022-11-06 19:00 | disposition home or self-care (01) ==
LOC: PT 11:00
PROVIDERS: PCP Internal Medicine; Referring Provider Internal Medicine; Visit Provider Internal Medicine
DX: M25.512 Pain in left shoulder (principal)
CPT/HCPCS: 97110; 97162

== ENCOUNTER → 2023-08-20 | Outpatient (CLI) | payer OTHER, SELFPAY ==
--- OUTSIDE RECORDS SUMMARY | 2023-08-20 09:01 | XMS RPT_ITS | CCD ---
Author Name Unknown Address [address] [place] [address] Organization [facility] Care Team Providers Care Cardiovascular Technician Name Role Phone Eve Yadav MD Unavailable [phone] Santo Becker DO Primary Care Provider [phone] SANTO BECKER Primary Care Unavailable RANDEE RAYMUNDO Referring Unavailable SANTO BECKER Primary Care Unavailable Medications Current Medications Medication Drug Class(es) Dates Sig (Normalized) Sig (Original) meclizine hydrochloride 25 mg oral tablet (2 sources) Antiemetic Start: 09-08-2022 End: 09-15-2022 take 1 tablet by mouth every six hours as needed for dizziness meclizine (ANTIVERT) 25 mg tab Indications: Vertigo Take 1 tablet by mouth every 6 hours as needed (dizziness) for up to 7 days. 15 tablet 0 09/08/2022 09/15/2022 Active Completed/Discontinued Medications Medication Drug Class(es) Dates Sig (Normalized) Sig (Original) doxycycline hyclate 50 mg oral tablet (1 source) Tetracycline-clas s Drug End: 09-08-2022 doxycycline hyclate 50 mg tab Indications: Menorrhagia with regular cycle Take by mouth. 0 09/08/2022 Discontinued Problems Active Problems Problem Classification Problem Date Documented Date Episodic/Chronic Conditions associated with dizziness or vertigo (1 source) Vertigo; Translations: [Dizziness and giddiness] Episodic Other ear and sense organ disorders (1 source) Impacted cerumen in left ear; Translations: [Impacted cerumen, left ear] Episodic Other endocrine disorders (2 sources) Polycystic ovary syndrome; Translations: [Polycystic ovarian syndrome] Onset: 12-21-2014 12-21-2014 Chronic Other non-traumatic joint disorders (1 source) Shoulder pain; Translations: [Pain in left shoulder] Episodic Unclassified (2 sources) Gynecologic examination ; Translations: [Encounter for gynecological examination (general) (routine) with abnormal findings] Onset: 05-02-2017 05-02-2017 Past or Other Problems Problem Classification Problem Date Documented Da te Episodic/Chronic Abdominal pain (2 sources) Left lower quadrant pain; Translations: [Left lower quadrant pain] Onset: 05-02-2017 05-02-2017 Episodic Results Test Name Value Interpretation Reference Range Facil ity Vital Signs Date Time Vital Sign Value Performing Clinician Faci lity 09-08-2022 11:30-0500 Body temperature 97.81 [degF] Randee Raymundo MD Work Phone: [facility] 09-08-2022 11:30-0500 Body weight 86 kg Randee Raymundo MD Work Phone: [facility] 09-08-2022 11:30-0500 Diastolic blood pressure 82 mm[Hg] Randee Raymundo MD Work Phone: [facility] 09-08-2022 11:30-0500 Heart rate 87 /min Randee Raymundo MD Work Phone: [facility] 09-08-2022 11:30-0500 Respiratory rate 16 /min Randee Raymundo MD Work Phone: [facility] 09-08-2022 11:30-0500 SaO2% (BldA) [Mass fraction] 99 % Randee Raymundo MD Work Phone: [facility] 09-08-2022 11:30-0500 Systolic blood pressure 128 mm[Hg] Randee Raymundo MD Work Phone: [facility] 05-02-2017 09:29-0400 BMI (Body Mass Index) 28.94 kg/m2 Eve Yadav MD [facility] [place] 05-02-2017 09:29-0400 Body Temperature 98.4 [degF] Eve Yadav MD [facility] [place] 05-02-2017 09:29-0400 BP Diastolic 67 mm[Hg] Eve Yadav MD [facility] [place] 05-02-2017 09:29-0400 BP Systolic 119 mm[Hg] Eve Yadav MD [facility] 05-02-2017 09:29-0400 Height 166.37 cm Eve Yadav MD [facility] 05-02-2017 09:29-0400 Pulse (Heart Rate) 77 /min Eve Yadav MD [facility] 05-02-2017 09:29-0400 Respiratory Rate 16 /min Eve Yadav MD [facility] 05-02-2017 09:29-0400 Weight 80.11 kg Eve Yadav MD [facility] 05-02-2017 09:290400 Weight 80.1 kg Eve Yadav MD [facility] Encounters Encounter Date Encounter Type Care Provider Facility Start: 09-09-2022 Telephone encounter Riya Leann Castañeda APRN.CNP Work Phone: [facility] Plan of Treatment Date Care Activity Detail Author Start: 01-16-2026 Urine microalbumin profile DTAP,TDAP,TD (2 - Td or Tdap) [facility] Start: 07-02-2022 DEPRESSION ASSESSMENT DEPRESSION ASSESSMENT [facility] Start: 2022 Mammography MAMMOGRAM [facility] Start: 03-02-2022 Influenza vaccination INFLUENZA (#1) [facility] Start: 05-17-2021 HPV TESTING HPV TESTING [facility] Start: 05-17-2021 PAP TESTING PAP TESTING [facility] Start: 05-02-2017 End: 05-02-2017 Appointment Appointment [facility] Start: 2000 HEPATITIS C SCREENING HEPATITIS C SCREENING [facility] Start: 1982 COVID-19 VACCINE (#1) COVID-19 VACCINE (#1) [facility] Start: 1982 HEPATITIS B (1 of 3 - 3-dose series) HEPATITIS B (1 of 3 - 3-dose series) [facility] End: 10-08-2023 XR SHOULDER GENERAL 3V OR MORE AP/TRUE AP/OTHER LEFT XR SHOULDER GENERAL 3V OR MORE AP/TRUE AP/OTHER LEFT Radiology Routine Acute pain of left shoulder 1 Occurrences starting 09/08/2022 until 10/08/2023 [facility] Work Phone: Immunizations Immunization Date Immunization Notes Care Provider Juanis jaykareen 05-24-2020 influenza, injectabl e, quadrivalent, contains preservative Randee Raymundo MD Work Phone: [facility] 01-17-2016 tetanus toxoid, redu james diphtheria toxoid, and acellular pertussis vaccine, adsorbed Randee Raymundo MD Work Phone: [facility] Payers Date Payer Category Payer Unknown MMO M[employer] PPO [id number] 2022-Present [phone] [address] [place] [address] PPO [id number] 2022 Unknown [id number] Social History Date Type Detail Facility Start: 12-21-2014 Tobacco smoking stat us [facility] Never smoked tobacco [facility] Work Phone: Start: 12-21-2014 Tobacco use and exposure Smokeless tobacco non-user [facility] Work Phone: Start: 09-08-2022 Alcohol intake Current non-dr machine ii trimmer of alcohol (finding) [facility] Start: 1980 Sex Assigned At Not on file [facility] Note 09-09-2022 Telephone Encounter - Lyndsay Schmitz MA - 09/09/2022 10:06 AM ESTTelephone Encounter - Lyndsay Schmitz MA - 09/09/2022 9:50 AM EST Note Date & Type Note Facility 09-09-2022 Miscellaneous Notes Formattin g of this note might be different from the original. Pt was notified of the results. Pt verbalized understanding. Lyndsay Schmitz MA ----- Message from Riya Martinez APRN.CLAM SHUCKER sent at 09/09/2022 8:58 AM EST ----- Please advise patient the shoulder xray was normal. documented in this encounter [facility] Progress note 09-08-2022 Note Date & Type Note Facility 09-08-2022 Note HNO ID: [id number] Author: RT Cherry(R) Service: ? Author Type: Geophysical Data Technician Type: Progress Notes Filed: 09/08/2022 12:18 PM Note Text: Radiology Service Progress Note PATIENT NAME: Indy Ralph DATE OF SERVICE: September 08, 2022 TIME: 12:18 PM PATIENT IDENTITY VERIFICATION COMPLETED USING TWO (2) IDENTIFIERS: Name and Date of confirmed by patient verbally. FALL SCREENING: Has the patient had 2 falls in the last year or 1 fall with injury or currently using an Ambulatory Assistive Device (Walker, Cane, Wheelchair, Crutches, etc.)? No PATIENT GENDER DATA: Female. status: : No status: NO. PATIENT RELEVANT IMPLANT DATA REVIEWED: Yes RADIOLOGY DEPARTMENT: General X-ray: Exam(s) Completed: Upper Extremity X-Ray(s): Shoulder, AP / TRUE AP / AXILLARY left PERIPHERAL IV DATA: Not applicable SIGNED BY: RT Cherry(R) September 08, 2022 12:18 PM [facility] Progress note 09-08-2022 Note Date & Type Note Facility 09-08-2022 Note HNO ID: [id number] Author: Randee Raymundo MD Service: ? Author Type: Physician Type: Progress Notes Filed: 09/08/2022 12:31 PM Note Text: Patient presents with: left shoulder pain: Fell in the shower in May and not getting better-also vertigo x 4-5 days HPI: Dizziness: Noted left ear pain 4 days ago after getting to [place]. Treated with OTC wax treatment and seemed to improve. She has been feeling rocking/dizzy since. She did not feel safe driving today. Noticed mild sinus pressure yesterday when flying back. Her vision feels tired but not blurred or double. Denies numbness or weakness. She has not had previous episodes of vertigo but her mother does. Her sister was recently in the hospital with water behind the ear. Duration: Caught herself with arm out in the shower in May. Bothering her more recently. Location: top of the shoulder joint Character: aching Radiation: has had left neck pain this week Aggravating: sleeps on that side, neck movement, sore the day after lifting weights Relieving: Pain relievers: Motrin Associated: interrupts sleep Pertinent negatives: Denies numbness, popping PAST MEDICAL HISTORY Diagnosis Date NEGATIVE MEDICAL HISTORY PAST SURGICAL HISTORY Procedure Laterality Date DELIVERY ONLY , low transverse DELIVERY ONLY , low transverse DELIVERY ONLY 03/31/16 , low transverse LIG/TRNSXJ FLP TUBE ABDL/VAG APPR UNI/BI 03/31/16 Tubal ligation MEDICATIONS: No prescriptions on file. ALLERGIES: ALLERGIES No Known Allergies VITALS: BP 128/82 Pulse 87 Temp 36.6 ?C (97.8 ?F) (Tympanic) Resp 16 Wt 86 kg (189 lb 9.6 oz) LMP 11/20/2016 (Exact Date) SpO2 99% BMI 31.07 kg/m? PHYSICAL EXAM: GEN: pleasant, no acute distress, alert HEENT: PERRL, EOMI, MMM EARS: moderate cerumen removed from the left canal with plastic cerumen curette. Small cerumen right canal. TMs without erythema, bulge, effusion, or perforation. NECK: supple, no lymphadenopathy, no thyromegaly, no midline or paraspinal tenderness. Full range of motion. SHOULDER: left compared to right. No deformity or swelling. Palpation of clavicle non-tender, AC joint non-tender, glenohumeral joint non-tender. ROM: full, painful with shoulder hyperabducted. Impingement test: Negative. Supraspinatus (empty can test): Negative. Cross arm test: Negative. HEART: regular rate, regular rhythm, no murmurs LUNGS: clear to auscultation, no wheezes or crackles, no increased WOB EXT: no clubbing, no cyanosis, no edema NEURO: Alert and oriented to person, place, and time. CN II-XII intact. 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 Normal gait. No tremor. ASSESSMENT/PLAN: 1. Vertigo - ICD9: 780.4, ICD10: R42 (primary diagnosis) 2. Impacted cerumen of left ear - ICD9: 380.4, ICD10: H61.22 Suspect barotrauma from flying, snorkeling, wax removal. Continue expectant management. - MECLIZINE 25 MG TABLET as needed. Seek evaluation for worsening headache, worsening dizziness, worsening nausea, vision change, numbness, weakness, or speech difficulty. 3. Acute pain of left shoulder - ICD9: 719.41, ICD10: M25.512 No significant abnormalities on x-ray. She is scheduled for follow-up with her PCP on the . Further treatment may include physical therapy or orthopedic referral. Randee Raymundo MD [facility] History of Present illness Narrative 09-08-2022 Randee Raymundo MD - 09/08/2022 11:39 AM EST Note Date & Type Note Facility 09-08-2022 History of Presen t illness Narrative Patient presents with: left shoulder pain: Fell in the shower in May and not getting better-also vertigo x 4-5 days HPI: Dizziness: Noted left ear pain 4 days ago after getting to [place]. Treated with OTC wax treatment and seemed to improve. She has been feeling rocking/dizzy since. She did not feel safe driving today. Noticed mild sinus pressure yesterday when flying back. Her vision feels tired but not blurred or double. Denies numbness or weakness. She has not had previous episodes of vertigo but her mother does. Her sister was recently in the hospital with water behind the ear. Duration: Caught herself with arm out in the shower in May. Bothering her more recently. Location: top of the shoulder joint Character: aching Radiation: has had left neck pain this week Aggravating: sleeps on that side, neck movement, sore the day after lifting weights Relieving: Pain relievers: Motrin Associated: interrupts sleep Pertinent negatives: Denies numbness, popping PAST MEDICAL HISTORY Diagnosis Date NEGATIVE MEDICAL HISTORY PAST SURGICAL HISTORY Procedure Laterality Date DELIVERY ONLY , low transverse DELIVERY ONLY , low transverse DELIVERY ONLY 03/31/16 , low transverse LIG/TRNSXJ FLP TUBE ABDL/VAG APPR UNI/BI 03/31/16 Tubal ligation MEDICATIONS: No prescriptions on file. ALLERGIES: ALLERGIES No Known Allergies VITALS: BP 128/82 Pulse 87 Temp 36.6 C (97.8 F) (Tympanic) Resp 16 Wt 86 kg (189 lb 9.6 oz) LMP 11/20/2016 (Exact Date) SpO2 99% BMI 31.07 kg/m PHYSICAL EXAM: GEN: pleasant, no acute distress, alert HEENT: PERRL, EOMI, MMM EARS: moderate cerumen removed from the left canal with plastic cerumen curette. Small cerumen right canal. TMs without erythema, bulge, effusion, or perforation. NECK: supple, no lymphadenopathy, no thyromegaly, no midline or paraspinal tenderness. Full range of motion. SHOULDER: left compared to right. No deformity or swelling. Palpation of clavicle non-tender, AC joint non-tender, glenohumeral joint non-tender. ROM: full, painful with shoulder hyperabducted. Impingement test: Negative. Supraspinatus (empty can test): Negative. Cross arm test: Negative. HEART: regular rate, regular rhythm, no murmurs LUNGS: clear to auscultation, no wheezes or crackles, no increased WOB EXT: no clubbing, no cyanosis, no edema NEURO: Alert and oriented to person, place, and time. CN II-XII intact. 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 Normal gait. No tremor. ASSESSMENT/PLAN: 1. Vertigo - ICD9: 780.4, ICD10: R42 (primary diagnosis) 2. Impacted cerumen of left ear - ICD9: 380.4, ICD10: H61.22 Suspect barotrauma from flying, snorkeling, wax removal. Continue expectant management. - MECLIZINE 25 MG TABLET as needed. Seek evaluation for worsening headache, worsening dizziness, worsening nausea, vision change, numbness, weakness, or speech difficulty. 3. Acute pain of left shoulder - ICD9: 719.41, ICD10: M25.512 No significant abnormalities on x-ray. She is scheduled for follow-up with her PCP on the . Further treatment may include physical therapy or orthopedic referral. Randee Raymundo MD documented in this encounter [facility] History of Past illness Narrative 11-01-2015 Note Date & Type Note Facility documented as of this encounter (statuses as of 09/08/2022) [facility] History of Past illness Narrative 11-01-2015 Note Date & Type Note Facility documented as of this encounter (statuses as of 09/09/2022) [facility] Evaluation note Note Date & Type Note Facility documented in this encounter [facility] Reason for referral (narrative) Diagnostic Procedure Only (Routine) - Closed Note Date & Type Note Facility Referral ID Status Reason Start Date Expiration Date V isits Requested Visits Authorized [id number] Closed Auto-Generate d Referral 09/08/2022 10/08/2023 1 1 [facility] Summary Purpose Family History No Family History Records Found Advance Directives No Advanced Directives Records Found Additional Source Comments Source Comments (unrecognize d section and content) In the event this informatio n is protected by the Federal Confidentiality of Alcohol and Drug Abuse Patient Records regulations: The Federal rules restrict any use of the information to criminally investigate or prosecute any alcohol or drug abuse patient.[facility] the event this information is protected by the Federal Confidentiality of Alcohol and Drug Abuse Patient Records regulations: The Federal rules restrict any use of the information to criminally investigate or prosecute any alcohol or drug abuse patient.[facility] Reason for Visit (unrecogniz ed section and content) Reason Comments Results Care Teams (unrecognized sec tion and content) Cardiovascular Technician Relationship Specialty Start Date End Date Santo Becker DO [address] [place] [address] PCP - General Family Medicine 02/15/15 INFORMATION SOURCE (unrecogn ized section and content) FOR RECORDS PERTAINING TO PATIENTS WHO ARE OR HAVE BEEN ENROLLED IN A CHEMICAL DEPENDENCY/SUBSTANCEABUSE PROGRAM, SOME INFORMATION MAY BE OMITTED. This clinical summary was aggregated from multiple sources. Caution should be exercised in using it in the provision of clinical care. This summary normalizes information from multiple sources, and as a consequence, information in this document may materially change the coding, format and clinical context of patient data. In addition, data may be omitted in some cases. CLINICAL DECISIONS SHOULD BE BASED ON THE PRIMARY CLINICAL RECORDS. [employer] provides no warranty or guarantee of the accuracy or completeness of information in this document.
[2023-08-20 12:35] LABS: Absolute Lymphocyte Count 2.48 X10^3/uL (0.83-4.51); Absolute Neutrophil Count 4.5 X10^3/uL (2.0-7.7); Basophil# 0.07 X10^3/uL; Basophil% 0.9 % (0-1); Eosinophils% 5.1 % (0-5); Hematocrit 42.5 % (37-47); Hemoglobin 13.9 g/dL (12.0-15.0); Lymphocyte # 2.48 X10^3/ul (0.83-4.51); Lymphocyte % 31.6 % (19-41); Mean Corp Hgb Conc 32.7 g/dL (32-36); Mean Corpuscular Hgb 29.5 pg (27.0-32.0); Mean Corpuscular Volume 90.2 fL (81-99); Monocyte# 0.36 X10^3/uL; Monocyte% 4.6 % (0-10); NRBC Flagged by Analyzer 0 % (0-5); Neutrophil # 4.49 X10^3/uL (2.7-7.7); Neutrophil % 57.3 % (47-70); Platelet Count 406 K/mm3 (150-450); RBC Distribution Width CV 12.3 % (11.6-14.6); RBC Distribution Width SD 40.7 fl (35.1-43.9); Red Blood Count 4.71 M/mm3 (4.2-5.4); White Blood Count 7.8 K/mm3 (4.4-11.0)
[2023-08-20 12:45] LABS: AST(SGOT) 14 U/L (15-37); Alanine Aminotransfer ALT/SGPT 22 U/L (13-56); Albumin, Serum 3.6 g/dL (3.2-5.0); Alkaline Phosphatase 58 U/L (45-117); Anion Gap 6 (5-15); BUN 17 mg/dL (7-18); BUN/Creat Ratio 24.1 RATIO (10-20); Calcium,Total 9.4 mg/dL (8.5-10.1); Chloride 109 mmol/L (98-107); Cholesterol 180 mg/dL (200); EST Glomerular Filtration Rate 97 mL/min (>60); Est Glom Filt Rate - Afr Amer 118 mL/min (>60); Globulin 3.7 g/dL (2.2-4.2); Glucose 83 mg/dL (74-106); High Density Lipoprotein 48 mg/dL; Potassium 3.6 mmol/L (3.5-5.1); Protein, Total 7.3 g/dL (6.4-8.2); Sodium Level 141 mmol/L (136-145); Triglycerides 231 mg/dL; Very Low Density Lipoprotein 46 mg/dL (5-40)
== END | disposition home or self-care (01) ==
LOC: BIMLAB 08:33
PROVIDERS: PCP Internal Medicine; Visit Provider Internal Medicine
DX: Z00.00 Encounter for general adult medical examination without abnormal findings (principal)
CPT/HCPCS: 36415; 80053; 80061; 85025

== ENCOUNTER → 2023-08-24 | Outpatient (CLI) | payer OTHER, SELFPAY ==
--- OUTSIDE RECORDS SUMMARY | 2023-08-24 13:12 | XMS RPT_ITS | CCD ---
Author Name Unknown Address [address] [place] [address] Organization [facility] Care Team Providers Care Wharf Helper Name Role Phone Eve Yadav MD Unavailable [phone] Santo Becker DO Primary Care Provider SANTO BECKER Primary Care Unavailable RANDEE RAYMUNDO [...] 97.81 [degF] Randee Raymundo MD Work Phone: [facility] 09-08-2022 11:30-0500 Body weight 86 kg Randee Raymundo MD Work Phone: [facility] 09-08-2022 11:30-0500 Diastolic blood pressure 82 mm[Hg] Randee Raymundo MD Work Phone: [facility] 09-08-2022 11:30-0500 Heart rate 87 /min Randee Raymundo MD Work Phone: [facility] 09-08-2022 11:30-0500 Respiratory rate 16 /min Randee Raymundo MD Work Phone: [facility] 09-08-2022 11:30-0500 SaO2% (BldA) [Mass fraction] 99 % Randee Raymundo MD Work Phone: [facility] 09-08-2022 11:30-0500 Systolic blood pressure 128 mm[Hg] Randee Raymundo MD Work Phone: [facility] 05-02-2017 09:29-0400 BMI (Body Mass Index) 28.94 kg/m2 Eve Yadav MD [facility] 05-02-2017 09:29-0400 Body Temperature 98.4 [degF] Eve Yadav MD [facility] 05-02-2017 09:29-0400 BP Diastolic 67 mm[Hg] Eve Yadav MD [facility] 05-02-2017 09:29-0400 BP Systolic 119 mm[Hg] Eve Yadav MD [facility] 05-02-2017 09:29-0400 Height 166.37 cm Eve Yadav MD [facility] 05-02-2017 09:29-0400 Pulse (Heart Rate) 77 /min Eve Yadav MD [facility] 05-02-2017 09:29-0400 Respiratory Rate 16 /min Eve Yadav MD [facility] 05-02-2017 09:29-0400 Weight 80.11 kg Eve Yadav MD [facility] 05-02-2017 09:290400 Weight 80.1 kg Eve Yadav MD [facility] Encounters Encounter Date Encounter Type Care Provider Facility Start: 09-09-2022 Telephone encounter Riya Leann Castañeda APRN.CNP Work Phone: [facility] Plan of Treatment Date Care Activity Detail Author Start: 01-16-2026 Urine microalbumin profile DTAP,TDAP,TD (2 - Td or Tdap) [facility] Start: 07-02-2022 DEPRESSION ASSESSMENT DEPRESSION ASSESSMENT [facility] Start: 2022 Mammography MAMMOGRAM [facility] Start: 03-02-2022 Influenza vaccination INFLUENZA (#1) [facility] Start: 05-17-2021 HPV TESTING HPV TESTING [facility] Start: 05-17-2021 PAP TESTING PAP TESTING [facility] Start: 05-02-2017 End: 05-02-2017 Appointment Appointment [facility] Start: 2000 HEPATITIS C SCREENING HEPATITIS C SCREENING [facility] Start: 1980 COVID-19 VACCINE (#1) COVID-19 VACCINE (#1) [facility] Start: 1980 HEPATITIS B (1 of 3 - 3-dose series) HEPATITIS B (1 of 3 - 3-dose series) [facility] End: 10-08-2023 XR SHOULDER GENERAL 3V OR MORE AP/TRUE AP/OTHER LEFT XR SHOULDER GENERAL 3V OR MORE AP/TRUE AP/OTHER LEFT Radiology Routine Acute pain of left shoulder 1 Occurrences starting 09/08/2022 until 10/08/2023 [facility] Work Phone: Immunizations Immunization Date Immunization Notes Care Provider Juanis jaykareen 05-24-2020 influenza, injectabl e, quadrivalent, contains preservative Randee Raymundo MD Work Phone: [facility] 01-17-2016 tetanus toxoid, redu james diphtheria toxoid, and acellular pertussis vaccine, adsorbed Randee Raymundo MD Work Phone: [facility] Payers Date Payer Category Payer Unknown MMO MMO [employer] PPO [id number] 2022-Present [phone] [address] [place] [address] PPO [id number] 2022 Unknown [id number] Social History Date Type Detail Facility Start: 12-21-2014 Tobacco smoking stat us [facility] Never smoked tobacco [facility] Work Phone: Start: 12-21-2014 Tobacco use and exposure Smokeless tobacco non-user [facility] Work Phone: Start: 09-08-2022 Alcohol intake 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 documented in this encounter [facility] Progress note 09-08-2022 Note Date & Type Note Facility 09-08-2022 Note HNO ID: [id number] Author: RT Cherry(R) Service: ? Author Type: Industrial Chemical[employer] Supervisor Type: Progress Notes Filed: 09/08/2022 12:18 PM [...] RT Cherry(R) September 08, 2022 12:18 PM [facility] Progress note 09-08-2022 Note Date & Type Note Facility 09-08-2022 Note HNO ID: [id number] Author: Randee Raymundo MD Service: ? Author Type: Physician Type: Progress Notes Filed: 09/08/2022 12:31 PM Note Text: Patient presents with: left shoulder pain: Fell in the shower in May and not getting better-also vertigo x 4-5 days HPI: Dizziness: Noted left ear pain 4 days ago after getting to [place]. Treated with OTC wax treatment and seemed [...] CN II-XII intact. 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 Normal gait. [...] therapy or orthopedic referral. Randee Raymundo MD [facility] History of Present illness Narrative 09-08-2022 Randee Raymundo MD - 09/08/2022 11:39 AM EST Note Date & Type Note Facility 09-08-2022 History of Presen t illness Narrative Patient presents with: left shoulder pain: Fell in the shower in May and not getting better-also vertigo x 4-5 days HPI: Dizziness: Noted left ear pain 4 days ago after getting to [place]. Treated with OTC wax treatment and seemed [...] CN II-XII intact. 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 Normal gait. [...] Randee Raymundo MD documented in this encounter [facility] History of Past illness Narrative 11-01-2015 Note Date & Type Note Facility documented as of this encounter (statuses as of 09/08/2022) [facility] History of Past illness Narrative 11-01-2015 Note Date & Type Note Facility documented as of this encounter (statuses as of 09/09/2022) [facility] Evaluation note Note Date & Type Note Facility documented in this encounter [facility] Reason for referral (narrative) Diagnostic Procedure Only (Routine) - Closed Note Date & Type Note Facility Referral ID Status Reason Start Date Expiration Date V isits Requested Visits Authorized [id number] Closed Auto-Generate d Referral 09/08/2022 10/08/2023 1 1 [facility] Summary Purpose Family History No Family History [...] or prosecute any alcohol or drug abuse [facility] the event this information is protected by the Federal Confidentiality of Alcohol and Drug Abuse Patient Records regulations: The Federal rules restrict any use of the information to criminally investigate or prosecute any alcohol or drug abuse patient.[facility] Reason for Visit (unrecogniz ed section and content) Reason Comments Results Care Teams (unrecognized sec tion and content) Wharf Helper Relationship Specialty Start Date End Date Santo Becker DO [address] [place] [address] PCP - General Family Medicine 02/15/15 INFORMATION [...] BE BASED ON THE PRIMARY CLINICAL RECORDS. [employer] provides no warranty or guarantee of the accuracy or completeness of information in this document.
[2023-08-29 15:08] LABS: HPV APTIMA, High Risk Negative (Negative)
== END | disposition home or self-care (01) ==
LOC: LABSPEC 12:35
PROVIDERS: PCP Internal Medicine; Referring Provider Advanced Practice Midwife; Visit Provider Advanced Practice Midwife
DX: Z12.4 Encounter for screening for malignant neoplasm of cervix (principal)
CPT/HCPCS: 87624; 88175; G0145

== ENCOUNTER → 2023-09-07 | Outpatient (CLI) | payer OTHER, SELFPAY ==
--- NOTE | 2023-09-07 08:22 | BI_ITS ---
MAMMOGRAPHY - BILATERAL SCREENING 3-D TOMOSYNTHESIS REASON FOR EXAM: Female, 43 years old. Breast Cancer Screening PERTINENT HISTORY: No significant family history. TECHNIQUE: 2-D mammograms and 3-D Tomosynthesis of the breast (s) were performed. CAD was performed. COMPARISON: 02/27/2022 FINDINGS: The breast composition is composed of scattered fibroglandular density. Scattered benign calcifications are seen. No dense spiculated masses or suspicious microcalcifications are identified. No architectural distortion is identified. There is no skin thickening or retraction. There has been no significant change since the prior study. BI/SCRN MAMM (CAD)W/BLANK BILAT IMPRESSION: No mammographic signs of malignancy. Routine yearly mammograms recommended. ASSESSMENT CATEGORY: BIRADS Category 1: Negative. A letter regarding these results will be sent to the patient by the facility within 30 days. FOLLOW UP RECOMMENDATION: Yearly follow up mammogram recommended. (A) Approximately 10% of breast cancers are not detected by mammography. A normal mammogram should not delay biopsy of a clinically suspicious abnormality. Electronically Signed: Herbert Dubon MD at 14:06 EST ,
== END | disposition home or self-care (01) ==
LOC: OPBI 08:21
PROVIDERS: PCP Internal Medicine; Referring Provider Internal Medicine; Visit Provider Internal Medicine
DX: Z12.31 Encounter for screening mammogram for malignant neoplasm of breast (principal)
CPT/HCPCS: 77063; 77067

== ENCOUNTER → 2024-09-26 | Outpatient (CLI) | payer OTHER, SELFPAY ==
--- NOTE | 2024-09-26 07:03 | BI_ITS ---
EXAM: SCRN MAMM (CAD)W/BLANK BILAT 09/26/2024 CLINICAL HISTORY: F, Age 44 y/o , SCREENING MAMMOGRAM TECHNIQUE: Bilateral Diagnostic digital breast tomosynthesis with 2D and 3D images. Computer aided detection. COMPARISON: Prior exam(s) dated 09/07/2023, 02/27/2022. FINDINGS: TISSUE DENSITY: The breast tissue is composed of scattered area of fibroglandular density. Bilateral Breast Mammographic Findings: No significant masses, calcifications or other abnormalities are identified. BI/SCRN MAMM (CAD)W/BLANK BILAT IMPRESSION: Right Breast: BIRADS 1 NEGATIVE. Left Breast: BIRADS 1 NEGATIVE. OVERALL FINAL ASSESSMENT: BIRADS 1 NEGATIVE. RECOMMENDATION: Routine annual follow-up in 1 Year A letter with findings and recommendations will be mailed to the patient. Reading Location: [id number]
== END | disposition home or self-care (01) ==
LOC: OPBI 07:03
PROVIDERS: PCP Internal Medicine; Referring Provider Obstetrics & Gynecology; Visit Provider Obstetrics & Gynecology
DX: Z12.31 Encounter for screening mammogram for malignant neoplasm of breast (principal)
CPT/HCPCS: 77063; 77067

== ENCOUNTER → 2024-12-24 | Outpatient (CLI) | payer OTHER, SELFPAY ==
--- NOTE | 2024-12-24 14:45 | EMB_PTH ---
PATIENT: BENY REICH LOC: [facility] U#:[id number] AGE/SX: 44/F ROOM: RE12/24/[address]: Dr. Chanell Cotto DO : 1980 BED: DIS: 12/24/2024 SPEC #: [id number] RECD: 12/24/24 17:05 STATUS: HERMAN ZACK #: [id number] ZAYNAB: 12/24/24 14:[address]: Chanell Cotto DEPT: SURGICAL PATHOLOGY RECD BY: Norman Nelson ENTERED: 12/25/24 09:15 SP TYPE: ENDOM BX/C ROBERTO DR: Dr. Fernanda Wilson MD Tissues: A - Endometrium, NOS Procedures: Surgery Specimen Level IV HEADER OPERATION: Endometrial biopsy PRE-OP DIAGNOSIS: Menorrhagia TISSUE SUBMITTED: A- Endometrial lining MICROSCOPIC DIAGNOSIS A. Endometrium, biopsy: * Benign proliferative endometrium * Few pieces of benign endocervical tissue with chronic endocervicitis MICROSCOPIC DESCRIPTION Slides are reviewed. GROSS DESCRIPTION Received in formalin labeled with the patient's name and date of . Designated as EMB is a 2.3 x 1.2 x 0.3 cm aggregate of hill-pink to red tissue fragments and mucoid material. Entirely submitted in 1 cassette. MN 12/25/2024 CPT:29214
== END | disposition home or self-care (01) ==
LOC: LABSPEC 16:18
PROVIDERS: PCP Internal Medicine; Referring Provider Obstetrics & Gynecology; Visit Provider Obstetrics & Gynecology
DX: N92.0 Excessive and frequent menstruation with regular cycle (principal)
CPT/HCPCS: 88305

== ENCOUNTER → 2024-12-29 | Outpatient (CLI) | payer OTHER, SELFPAY ==
--- NOTE | 2024-12-29 15:22 | US_ITS ---
PROCEDURE: PELVIC W/ TRANSVAGINAL 12/29/2024 REASON FOR EXAM: ABNORMAL UTERINE BLEEDING TECHNIQUE: PELVIC W/ TRANSVAGINAL COMPARISON: None. FINDINGS: Measurements: Uterus: 10.1 x 5.3 x 8.1 cm for volume of 224.1 mL. Endometrial Thickness: 1.3 cm Right Ovary: 2.4 x 2.0 x 1.8 cm for volume of 4.5 mL Left Ovary: 4.2 x 2.5 x 3.0 cm for volume of 17.0 mL Uterus: Anteverted. Normal contour and myometrial echotexture. Nabothian cysts at the cervix. Trace fluid at the lower uterine segment/cervix. section scar. Endometrium: Normal echotexture. No internal vascularity. Right ovary: Normal size and echotexture. Left ovary: Normal size and echotexture. Other adnexal findings: None. Cul-de-sac: No free intraperitoneal fluid identified. Color Doppler: Normal color flow doppler signal at both ovaries. US/Pelvic w/ Transvaginal IMPRESSION: Unremarkable pelvic ultrasound. Endometrial stripe measures 1.3 cm and is with out internal vascularity. Reading Location: [id number]
== END | disposition home or self-care (01) ==
LOC: US 15:20
PROVIDERS: PCP Internal Medicine; Referring Provider Obstetrics & Gynecology; Visit Provider Obstetrics & Gynecology
DX: N92.0 Excessive and frequent menstruation with regular cycle (principal)
CPT/HCPCS: 76830; 76856